=== PATIENT | female | born 1985 | race Hispanic/Latino ===

== ENCOUNTER 2019-06-14 00:02 | Emergency (ER) | payer MEDICAID, SELFPAY ==
[2019-06-14] MEDS ORDERED: Sodium Chloride 0.9% 1,000 ML ONE (00:55)
[2019-06-14 01:06] LABS: Bilirubin Negative (Negative); Blood, Urine Negative (Negative); Clarity Clear (Clear); Glucose, Urine (Dipstick) Negative (Negative); Leukocyte Negative (Negative); Nitrite Negative (Negative); Protein, Urine (Dipstick) Negative (Neg-Trace); Urobilinogen 0.2 mg/dL (Less than 2)
== END 2019-06-14 00:54 | disposition short-term general hospital (02) ==
LOC: NAV ERS 00:02
DX: O62.0 Primary inadequate contractions (principal); Z3A.38 38 weeks gestation of pregnancy
CPT/HCPCS: 81003; 99284; J7050